=== PATIENT | male | born 1955 | race Caucasian/White ===

== ENCOUNTER 2018-12-15 10:07 | Inpatient (IN) | payer BC ==
[~2018-12-15] VITALS: Ht 182.9 cm; Wt 103.9 kg
[~2018-12-15 10:07] MED LIST: BACTRIM DS TAB1 EACH PO; FLEXERIL PO; MEDROLDOSEPACK PO; NORCO 5-325 TA1 EACH PO
[2018-12-15] MEDS ORDERED: LISINOPRIL40 MG PO (10:18)
[2018-12-15] MEDS ORDERED: AMLODIPINE BESY10 MG PO (10:19)
[2018-12-15] MEDS ORDERED: EDARBI80 MG PO (10:19)
[2018-12-15] MEDS ORDERED: CATAPRES-TTS 20.2 MG TOP (10:20)
[2018-12-15 11:02] LABS: ABSOLUTE BASOPHILS 0.1 thou/uL (0.0-0.2); ABSOLUTE EOSINOPHILS 0.1 thou/uL (0.0-0.7); ABSOLUTE LYMPHOCYTES 1.4 thou/uL (0.8-5.3); ABSOLUTE MONOCYTES 0.5 thou/uL (0.0-1.2); ABSOLUTE NEUTROPHILS 6.8 thou/uL (1.6-8.1); BASOPHILS 0.6 %; HEMATOCRIT 48.6 % (42.0-52.0); HEMOGLOBIN 17.1 gm/dL (14.0-18.0); LYMPHOCYTES 16.1 %; MCH 30.7 pg (26.0-34.0); MCHC 35.1 g/dL (28.0-37.0); MCV 87.6 fL (80.0-100.0); MONOCYTES 5.1 %; MPV 9.2 fl. (7.2-11.1); NUCLEATED RBCS 0 /100WBC; PLATELET COUNT* 193 thou/uL (150-400); POLYS 77.2 %; RBC 5.55 mil/uL (4.50-6.00); RDW-CV 13.1 % (10.5-14.5); WBC 8.9 thou/uL (4.0-11.0)
[2018-12-15 11:21] LABS: ALBUMIN 4.2 g/dL (3.4-5.0); ALKALINE PHOSPHATASE 89 U/L (46-116); ANION GAP 13 mmol/L (7-16); BUN 16 mg/dL (7-18); CALCIUM 9.4 mg/dL (8.5-10.1); CHLORIDE 102 mmol/L (98-107); CO2 26 mmol/L (21-32); CREATININE 1.1 mg/dL (0.6-1.3); GLUCOSE 145 mg/dL (70-99); LIPASE 150 U/L (73-393); NT-PRO BRAIN NAT PEPTIDE 126 pg/mL (<300); POTASSIUM 3.6 mmol/L (3.5-5.1); SGOT 17 U/L (15-37); SGPT 39 U/L (30-65); SODIUM 141 mmol/L (136-145); TOTAL BILIRUBIN 0.6 mg/dL (<0.1-1.0); TOTAL PROTEIN 8.9 g/dL (6.4-8.2); TROPONIN-I LEVEL <0.06 ng/mL (<0.06)
[2018-12-15 12:13] LABS: URINE BILIRUBIN NEGATIVE (Negative); URINE BLOOD NEGATIVE (Negative); URINE CLARITY CLEAR; URINE COLOR YELLOW; URINE GLUCOSE-RANDOM NEGATIVE (Negative); URINE KETONES TRACE (Negative); URINE LEUKOCYTES-REFLEX NEGATIVE (Negative); URINE NITRITE-REFLEX NEGATIVE (Negative); URINE PROTEIN 1+ (Negative); URINE UROBILINOGEN 0.2 E.U./dl (0.2-1.0)
[2018-12-15 13:08] VITALS: BP 168/95
[2018-12-15 13:24] LABS: CHOLESTEROL 198 mg/dL (<200); HDL CHOLESTEROL 51 mg/dL (>40); LDL CHOLESTEROL 131 mg/dL (<100); TC:HDL 3.9 Ratio (Not establshd); TRIGLYCERIDE 82 mg/dL (<150); VLDL 16 mg/dL (<40)
[2018-12-15 13:26] LABS: SERUM ASSESSMENT Clear
[2018-12-15 13:34] LABS: AMP/METHAMP Negative (Negative); BARBITURATES Negative (Negative); BENZODIAZEPINES Negative (Negative); COCAINE Negative (Negative); METHADONE Negative (Negative); OPIATES Negative (Negative); PCP Negative (Negative); THC Negative (Negative)
--- NOTE | 2018-12-15 13:50 | NUR ---
telephone report given er admit to 226 patient to via cart patient oriented to and call light at beside patient with c/o ya nurse notified and will treat rafal
[2018-12-15 14:00] VITALS: BP 169/92
--- NOTE | 2018-12-15 14:53 | EKG ---
[place] [address] ELECTROCARDIOGRAM REPORT Name: JUAN CARLOS BURKS Room: [address] ADM IN .R.#: [id number] Admission: 12/15/18 Attend Phys: Juan Carlos Irving MD Discharge: Date of : 55 Report #: [id number] THIS REPORT FOR: //name// [facility] ED Test Date: 2018-12-15 Test Time: 10:14:04 Pat Name: JUAN CARLOS BURKS Department: Room: 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1955 Requested By: Roberto Foster Order Number: [id number] MD: Karlos Pfeiffer Measurements Intervals [place] Rate: 74 P: 32 SD: 200 QRS: 12 QRSD: 102 T: 141 QT: 412 QTc: 457 Interpretive Statements Sinus rhythm Probable left atrial enlargement Abnormal T, consider ischemia, lateral leads No previous ECG available for comparison Electronically Signed On 12-15-2018 14:53:01 CDT by Karlos Pfeiffer [email or web address] <ELECTRONICALLY SIGNED> By: Karlos Pfeiffer MD, [facility] 12/15/18 1453 1014 [id number] Karlos Pfeiffer MD, FAC /EPI
[2018-12-15 16:18] VITALS: BP 172/101
[2018-12-15 19:20] VITALS: BP 169/92
[2018-12-16] VITALS: BP 146/87
[2018-12-16 04:00] VITALS: BP 156/79
[2018-12-16 05:03] LABS: ABSOLUTE LYMPHOCYTES 1.3 thou/uL (0.8-5.3); ABSOLUTE MONOCYTES 0.7 thou/uL (0.0-1.2); ABSOLUTE NEUTROPHILS 10.7 thou/uL (1.6-8.1); BASOPHILS 0.1 %; EOSINOPHILS 0.1 %; HEMATOCRIT 43.7 % (42.0-52.0); HEMOGLOBIN 15.3 gm/dL (14.0-18.0); LYMPHOCYTES 10.5 %; MCH 30.6 pg (26.0-34.0); MCV 87.4 fL (80.0-100.0); MONOCYTES 5.7 %; MPV 9.6 fl. (7.2-11.1); NUCLEATED RBCS 0 /100WBC; PLATELET COUNT* 228 thou/uL (150-400); POLYS 83.6 %; RDW-CV 13.2 % (10.5-14.5); WBC 12.8 thou/uL (4.0-11.0)
[2018-12-16 05:06] LABS: CREATININE 1.4 mg/dL (0.6-1.3); POTASSIUM 3.9 mmol/L (3.5-5.1)
--- NOTE | 2018-12-16 05:44 | NUR ---
ASSUMED CARE OF PT AT 1900. PT IS ALERT AND ORIENTED. BLOOD PRESSURE WAS STILL ELEVATED AND PT HAD A SEVERE HEADACHE AT 1900. PT WAS GIVEN MORE HYDRALAZINE FOR HTN AND HYDROCODONE FOR HIS HEADACHE. PT ALSO RECIEVED ZOFRAN FOR NAUSEA. PT IS UP AD JANESSA. VSS. PERRLA. PT IS IN SINUS RYTHM ON THE TELEMETRY. PT IS RESTING COMFORTABLY IN BED. RESPIRATIONS ARE EVEN AND NONLABORED. WILL CONTINUE TO MONITOR PT.
--- NOTE | 2018-12-16 07:20 | NUR ---
CHANGE OF SHIFT, BEDSIDE REPORT GIVEN PATIENT SEEN AT BEDSIDE, SITTING UP IN BED WATCHING TV ASSUMED PATIENT CARE
[2018-12-16 08:00] VITALS: BP 156/85
[2018-12-16] MEDS ORDERED: CARVEDILOL3.125 MG PO ×2 (11:58→13:13)
[2018-12-16 11:59] VITALS: BP 156/85
[2018-12-16 12:00] VITALS: BP 153/77
[2018-12-16] MEDS ORDERED: AMLODIPINE BESY10 MG PO (13:13)
[2018-12-16] MEDS ORDERED: ASPIR 8181 MG PO (13:13)
[2018-12-16] MEDS ORDERED: CATAPRES-TTS 20.2 MG TRANSDERM (13:13)
[2018-12-16] MEDS ORDERED: LISINOPRIL40 MG PO (13:13)
--- NOTE | 2018-12-16 13:22 | NUR ---
MET WITH PT AND TO DISCUSS HOME SITUATION/DC PLANNING. PT LIVES WITH . HE IS INDEPENDENT AND ACTIVE, USES NO EQUIPMENT. HE IS SELF EMPLOYED. PT AND STATED THEIR INSURANCE WILL TERM THE END OF THE MONTH AND HE LOST HIS PCP/DR GOLDEN. GAVE RESOURCE FOR [facility]. ENCOURAGED PT TO F/U SOON HE WILL ONLY HAVE SCRIPTS FOR A MONTH'S SUPPLY POST DC.
--- NOTE | 2018-12-16 14:49 | NUR ---
PATIENT DISCHARGED TO HOME IV AND HEART MONITOR REMOVED DISCHARGE INFORMATION GIVEN, ACKNOWLEDGED, AND SIGNED COPIES GIVEN PERSONAL BELONGINGS RETURNED PATIENT ASSISTED OUT VIA GOOD CONDITION TO WAITING CAR
--- NOTE | 2018-12-16 15:43 | 2DMMODE ---
[place] [address] 2 D/M-MODE ECHOCARDIOGRAM Name: JUAN CARLOS BURKS Room: [address] IN [facility]#: [id number] Admission: 12/15/18 Attend Phys: Juan Carlos Irving, Discharge: 12/16/18 Date of : 55 Date of Service: 12/16/18 1543 Report #: [id number] THIS REPORT FOR: //name// APPROVED REPORT Study performed: 12/16/2018 13:24:38 EXAM: Comprehensive 2D, Doppler, and color-flow Echocardiogram Patient Location: In-Patient Room #: [facility] Status: routine BSA: 2.28 HR: 65 bpm BP: 156/85 mmHg Rhythm: NSR Other Information Study Quality: Good Indications Hypertension/HDD 2D Dimensions IVSd: 16.87 (7-11mm) LVOT Diam: 21.95 (18-24mm) LVDd: 45.12 mm PWd: 11.34 (7-11mm) Ascending Ao: 38.93 (22-36mm) LVDs: 23.08 (25-40mm) Aortic Root: 37.15 mm Volumes Left Atrial Volume (Systole) LA ESV Index: 36.20 mL/m2 Aortic Valve AoV Peak Sebas.: 1.81 m/s AO Peak Gr.: 13.09 mmHg LVOT Max P.81 mmHg AO Mean Gr.: 7.62 mmHg LVOT Mean P.18 mmHg LVOT Max V: 1.79 m/s AO V2 VTI: 33.13 cm LVOT Mean V: 1.13 m/s NIC (VTI): 3.62 cm2 LVOT V1 VTI: 31.70 cm AI Ocean: 1.66 m/s2 AI PHT: 549.63 ms Mitral Valve E/A Ratio: 0.67 [place] [address] 2 D/M-MODE ECHOCARDIOGRAM Name: JUAN CARLOS BURKS Room: [address] IN .R.#: [id number] Admission: 12/15/18 Attend Phys: Juan Carlos Irving, Discharge: 12/16/18 Date of : 55 Date of Service: 12/16/18 1543 Report #: [id number] MV Decel. Time: 428.89 ms MV E Max Sebas.: 0.56 m/s MV PHT: 124.38 ms MVA (PHT): 1.77 cm2 TDI E/Lateral E': 7.00 E/Medial E': 9.33 Medial E' Sebas.: 0.06 m/s Lateral E' Sebas.: 0.08 m/s Pulmonary Valve PV Peak Sebas.: 1.00 m/s PV Peak Gr.: 4.02 mmHg Left Ventricle The left ventricle is normal size. There is normal LV segmental wall motion. Moderate concentric left ventricular hypertrophy. Left ventricular systolic function is normal. The left ventricular ejection fraction is within the normal range. LVEF is >70%. Grade I - abnormal relaxation pattern. Right Ventricle The right ventricle is normal size. The right ventricular systolic function is normal. Atria Left atrium is mildly dilated. The right atrium size is normal. Aortic Valve The aortic valve is normal in structure. Mild aortic regurgitation. There is no aortic valvular stenosis. Mitral Valve The mitral valve is normal in structure. Trace mitral regurgitation. No evidence of mitral valve stenosis. Tricuspid Valve The tricuspid valve is normal in structure. Unable to assess PA pressure. Trace tricuspid regurgitation. Pulmonic Valve The pulmonary valve is normal in structure. There is no pulmonic valvular regurgitation. Great Vessels The aortic root is normal in size[place] [address] 2 D/M-MODE ECHOCARDIOGRAM Name: JUAN CARLOS BURKS Room: [address]#: [id number] Admission: 12/15/18 Attend Phys: Juan Carlos Irving, Discharge: 12/16/18 Date of : 55 Date of Service: 12/16/18 1543 Report #: [id number] visualized. Pericardium There is no pericardial effusion. <Conclusion> Moderate concentric left ventricular hypertrophy. LVEF is >70%. Left atrium is mildly dilated. Mild aortic regurgitation. <ELECTRONICALLY SIGNED> By: Karlos Pfeiffer MD, FACC 12/16/18 1543 1543 1543 Karlos Pfeiffer MD, FACC /INF
== END 2018-12-16 14:49 | disposition home or self-care (01) | DRG 305 ==
LOC: M.ERS 10:07 → M.TBA-ER 11:37 → M.2W 11:37
PROVIDERS: Emergency Medicine; Registered Nurse; ADMIT Internal Medicine
DX: I10 Essential (primary) hypertension (principal); Z79.899 Other long term (current) drug therapy; Z87.891 Personal history of nicotine dependence; Z86.73 Personal history of transient ischemic attack (TIA), and cerebral infarction without residual deficits

== ENCOUNTER 2020-09-18 18:44 | Emergency (ER) | payer MEDICARE, OTHER ==
[~2020-09-18] VITALS: Ht 182.9 cm; Wt 100.2 kg
[~2020-09-18 18:44] MED LIST changes: +AMLODIPINE BESY10 MG PO; +ASPIR 8181 MG PO; +CARVEDILOL3.125 MG PO; +CATAPRES-TTS 20.2 MG TOP; +CATAPRES-TTS 20.2 MG TRANSDERM; +EDARBI80 MG PO; +LISINOPRIL40 MG PO
[2020-09-18] MEDS ORDERED: PREDNISONE 5 MG5 M1 PO (18:54)
[2020-09-18] MEDS ORDERED: TENORMIN25 MG PO (18:55)
[2020-09-18 19:49] LABS: ABSOLUTE LYMPHOCYTES 0.8 thou/uL (0.8-5.3); ABSOLUTE MONOCYTES 0.4 thou/uL (0.0-1.2); BASOPHILS 0.1 %; HEMOGLOBIN 13.4 gm/dL (14.0-18.0); LYMPHOCYTES 15.6 %; MCHC 34.3 g/dL (28.0-37.0); MCV 87.5 fL (80.0-100.0); MONOCYTES 7.6 %; MPV 8.9 fl. (7.2-11.1); NUCLEATED RBCS 0 /100WBC; PLATELET COUNT* 166 thou/uL (150-400); POLYS 76.7 %; RBC 4.46 mil/uL (4.50-6.00); RDW-CV 12.9 % (10.5-14.5); WBC 5.2 thou/uL (4.0-11.0)
[2020-09-18 19:59] LABS: CALCIUM 9.1 mg/dL (8.5-10.1); CREATININE 1.2 mg/dL (0.6-1.3); POTASSIUM 4.1 mmol/L (3.5-5.1)
[2020-09-18 20:05] LABS: ALBUMIN 3.3 g/dL (3.4-5.0); TOTAL BILIRUBIN 0.6 mg/dL (<0.1-1.0); TOTAL PROTEIN 7.8 g/dL (6.4-8.2)
[2020-09-18] MEDS ORDERED: ZPAK PO (21:30)
[2020-09-18] MEDS ORDERED: TESSALON PERLE100 MG PO (21:30)
[2020-09-18] MEDS ORDERED: VENTOLIN HFA 1818 GM INH (21:30)
[2020-09-18 22:00] VITALS: BP 164/91
--- NOTE | 2020-09-19 16:11 | EKG ---
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1955 Requested By: Rachel Clifford Order Number: [id number] MD: Ashwin Ott Measurements Intervals [place] Rate: 71 P: 47 [place]: 193 QRS: 19 QRSD: 114 T: 122 QT: 409 QTc: 445 Interpretive Statements Sinus rhythm Borderline intraventricular conduction delay Abnormal T, consider ischemia, lateral leads Compared to ECG 12/15/2018 10:14:04 No significant changes Electronically Signed On 09-19-2020 16:11:12 [employer]WING AND [employer]SEMBLY SUPERVISOR by Ashwin Ott [email or web address] <ELECTRONICALLY SIGNED> By: Ashwin Ott MD, FAC 09/19/20 1611 45 45 Ashwin Ott MD, [facility] /EPI
== END 2020-09-18 22:03 | disposition home or self-care (01) ==
LOC: M.ERS 18:44
PROVIDERS: Nurse Practitioner Family
DX: U07.1 COVID-19 (principal); I10 Essential (primary) hypertension

== ENCOUNTER 2021-03-11 09:32 | Inpatient (IN) | payer MEDICARE, OTHER ==
[~2021-03-11] VITALS: Ht 182.9 cm; Wt 103.4 kg
--- NOTE | ~2021-03-11 | CON ---
[address] [address] CONSULTATION Name: KIMMIE,JUAN CARLOS Perry Room: [address] IN M.R.#: [id number] Admission: 03/11/21 Attend Phys: Juan Carlos Irving MD Discharge: Date of : 55 Report #: [id number] THIS REPORT FOR: cc: Param Urbina,Param Baron,Peewee Ingram MD ~ DATE OF CONSULTATION: 03/11/2021 HISTORY OF PRESENT ILLNESS: This is a 66-year-old male patient who was evaluated by me for two medical problems, which appeared to be separate. He had weakness on the right side of the face. 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 He also has some ear symptoms and there was some question of swelling there. Symptoms started when the patient woke up this morning. The other problem is his gait was unsteady when he tried to walk this morning and he was having a very high blood pressure. He had some right ear pain which predated this patient's incoordination. He says the symptoms started about 2 weeks ago. REVIEW OF SYSTEMS: Positive for hypertension. He does have a prior history of COVID. He has a liver laceration and trouble with the spine in the past, but except for his hypertension, he looks pretty healthy. He is not complaining of any eye symptoms. He is complaining of ear pain. He does not complain of any chest pain, respiratory difficulty, GI, , musculoskeletal, constitutional, dermatological, hematological, psychiatric, throat, allergic symptom associated with present symptomatology. PAST MEDICAL HISTORY: Positive for spine problem. FAMILY HISTORY: Unremarkable. SOCIAL HISTORY: He says he does not drink or smoke. PHYSICAL EXAMINATION: NEUROLOGIC: Indicates he is alert and responsive. He believes his memory, fund of knowledge and speech is at his baseline. Cranial nerve examination does indicate a lower motor neuron type of right facial palsy. I do not see any pronounced blisters at the moment and he does not have any marked pain on the face, but does have pain in the ear. His strength, sensation, reflexes and tone looks unremarkable. He did [id number] and [id number]-[id number] reasonably well for me. I even made him walk. He may be slight unsteady in tandem walking, but that was not very prominent. His position sense is normal. His reflexes are symmetrical. He is a very well-developed individual. His hearing and vision looks adequate. He has no edema. There [place] [address] CONSULTATION Name: KIMMIE,JUAN CARLOS Perry Room: [address] IN [facility].#: [id number] Admission: 03/11/21 Attend Phys: Juan Carlos Irving MD Discharge: Date of : 55 Report #: [id number] insufficiency. VITAL SIGNS: Blood pressure is 193/100, respirations 17, pulse is 71, temperature is 97.5. LABORATORY DATA: White count is normal at 6.5. GFR is normal. He had a CT angio of the head conducted in the Emergency Room and that was unremarkable. IMPRESSION: This patient appeared to have 2 problems which appeared to be separate. 1. 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 He needs a full ENT evaluation, but unfortunately no ENT physician comes here. 2. His ataxia could not be explained by that. It is possible he had a stroke, but more likely it would appear that his ataxia is because of hypertensive encephalopathy. He does appear to have pretty persistently high blood pressure and may have hypertensive emergency. RECOMMENDATIONS: 1. His blood pressure can be lowered because his vasculature is intact. 2. I will get an MRI of the brain to make sure there is no stroke. 3. He needs an ENT evaluation. 4. He got some steroids in the Emergency Room and I will suggest continuing that with the Medrol Kevin. We can start that tomorrow. 5. I will put him on acyclovir. I gave him a Paredes's palsy dose for the time being, but if any herpes zoster is found, then the dose has to be changed to herpes zoster dose, which is much higher. All of it was discussed with the patient and all of it was discussed with him in detail and I discussed his options and pros and cons of this option and he wants to follow this plan and we will do that. Thank you very much for this referral. By: [id number] Jacques MD /sammy
[~2021-03-11 09:32] MED LIST changes: +PREDNISONE 5 MG5 M1 PO; +TENORMIN25 MG PO; +TESSALON PERLE100 MG PO; +VENTOLIN HFA 1818 GM INH; +ZPAK PO
[2021-03-11 09:44] VITALS: BP 205/109
[2021-03-11 10:05] LABS: ABSOLUTE BASOPHILS 0.1 thou/uL (0.0-0.2); ABSOLUTE EOSINOPHILS 0.2 thou/uL (0.0-0.7); ABSOLUTE LYMPHOCYTES 1.6 thou/uL (0.8-5.3); ABSOLUTE MONOCYTES 0.5 thou/uL (0.0-1.2); ABSOLUTE NEUTROPHILS 4.1 thou/uL (1.6-8.1); BASOPHILS 0.9 %; EOSINOPHILS 2.9 %; HEMATOCRIT 42.3 % (42.0-52.0); HEMOGLOBIN 14.9 gm/dL (14.0-18.0); MCHC 35.2 g/dL (28.0-37.0); MCV 87.9 fL (80.0-100.0); MONOCYTES 8.4 %; NUCLEATED RBCS 0 /100WBC; PLATELET COUNT* 175 thou/uL (150-400); POLYS 62.8 %; RBC 4.81 mil/uL (4.50-6.00); RDW-CV 12.9 % (10.5-14.5); WBC 6.5 thou/uL (4.0-11.0)
[2021-03-11 10:16] LABS: CALCIUM 8.6 mg/dL (8.5-10.1); CREATININE 1.1 mg/dL (0.6-1.3); POTASSIUM 4.2 mmol/L (3.5-5.1)
[2021-03-11 10:20] LABS: ALBUMIN 3.7 g/dL (3.4-5.0); TOTAL BILIRUBIN 0.4 mg/dL (<0.1-1.0)
[2021-03-11 13:03] VITALS: BP 196/97
[2021-03-11 13:35] VITALS: BP 193/100
[2021-03-11 17:27] VITALS: BP 193/106
[2021-03-11 20:45] VITALS: BP 186/107
[2021-03-11 23:53] VITALS: BP 148/80
[2021-03-12 02:05] LABS: GLYCOHEMOGLOBIN (HGB A1C) 6.9 % (4.8-5.6)
[2021-03-12 03:51] VITALS: BP 155/87
[2021-03-12 08:05] LABS: HEMATOCRIT 46.7 % (42.0-52.0); HEMOGLOBIN 15.5 gm/dL (14.0-18.0); MCH 30.5 pg (26.0-34.0); MCHC 33.2 g/dL (28.0-37.0); MPV 9.6 fl. (7.2-11.1); NUCLEATED RBCS 0 /100WBC; PLATELET COUNT* 181 thou/uL (150-400); RBC 5.08 mil/uL (4.50-6.00); RDW-CV 13.5 % (10.5-14.5); WBC 18.4 thou/uL (4.0-11.0)
[2021-03-12 08:30] LABS: ANION GAP 11 mmol/L (7-16); BUN 23 mg/dL (7-18); CALCIUM 9.5 mg/dL (8.5-10.1); CHLORIDE 103 mmol/L (98-107); CHOLESTEROL 293 mg/dL (<200); CO2 27 mmol/L (21-32); CREATININE 1.3 mg/dL (0.6-1.3); GLUCOSE 246 mg/dL (70-99); HDL CHOLESTEROL 53 mg/dL (>40); LDL CHOLESTEROL 216 mg/dL (<100); POTASSIUM 4.6 mmol/L (3.5-5.1); SERUM ASSESSMENT Clear; SODIUM 141 mmol/L (136-145); TC:HDL 5.5 Ratio (Not establshd); TRIGLYCERIDE 123 mg/dL (<150); VLDL 25 mg/dL (<40)
[2021-03-12 09:01] VITALS: BP 183/101
[2021-03-12 09:11] LABS: ABSOLUTE LYMPHOCYTES 1.5 thou/uL (0.8-5.3); ABSOLUTE MONOCYTES 0.2 thou/uL (0.0-1.2); ABSOLUTE NEUTROPHILS 16.7 thou/uL (1.6-8.1)
[2021-03-12 09:12] LABS: PLATELET ESTIMATE ADEQUATE
--- NOTE | 2021-03-12 09:58 | EKG ---
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1955 Requested By: Edwardo Jennings Order Number: [id number] MD: Karlos Pfeiffer Measurements Intervals [place] Rate: 71 P: 33 DE: 213 QRS: 15 QRSD: 106 T: 143 QT: 416 QTc: 453 Interpretive Statements Sinus rhythm Borderline prolonged DE interval Abnormal T, consider ischemia, lateral leads Baseline wander in lead(s) II Compared to ECG 09/18/2020 19:46:02 No significant changes Electronically Signed On 03-12-2021 9:58:38 CDT by Karlos Pfeiffer [email or web address] <ELECTRONICALLY SIGNED> By: Karlos Pfeiffer MD, FACC 03/12/21 0958 Karlos Pfeiffer MD, FAC /EPI
[2021-03-12 12:15] VITALS: BP 183/96
[2021-03-12 12:34] LABS: AMP/METHAMP Negative (Negative); BARBITURATES Negative (Negative); BENZODIAZEPINES Negative (Negative); COCAINE Negative (Negative); METHADONE Negative (Negative); OPIATES Negative (Negative); PCP Negative (Negative); THC Negative (Negative)
--- NOTE | 2021-03-12 14:21 | 2DMMODE ---
[place] [address] 2 D/M-MODE ECHOCARDIOGRAM Name: JUAN CARLOS BURKS Room: [address] IN [place].#: [id number] Admission: 03/11/21 Attend Phys: Juan Carlos Irving, Discharge: Date of : 55 Date of Service: 03/12/21 1420 Report #: [id number] THIS REPORT FOR: cc: Param Urbina,Param Doshi,Karlos Cortés MD [facility] ~ APPROVED REPORT Study performed: 03/12/2021 10:33:13 EXAM: Comprehensive 2D, Doppler, and color-flow Echocardiogram Patient Location: In-Patient Room #: [facility] Status: routine BSA: 2.26 HR: 88 bpm BP: 155/87 mmHg Rhythm: NSR Other Information Study Quality: Good Indications CVA/TIA Echo Enhancing Agent Indication: Rule out Shunt Agent(s) / Amount(s) Used: Agitated Saline 10 cc 2D Dimensions IVSd: 17.34 (7-11mm) LVOT Diam: 21.17 (18-24mm) LVDd: 41.60 mm PWd: 16.08 (7-11mm) Ascending Ao: 38.42 (22-36mm) LVDs: 15.83 (25-40mm) Aortic Root: 37.17 mm Volumes Left Atrial Volume (Systole) LA ESV Index: 22.80 mL/m2 Aortic Valve AoV Peak Sebas.: 1.69 m/s AO Peak Gr.: 11.46 mmHg LVOT Max P.16 mmHg AO Mean Gr.: 7.55 mmHg LVOT Mean P.37 [place] [address] 2 D/M-MODE ECHOCARDIOGRAM Name: JUAN CARLOS BURKS Room: [address] IN [facility]#: [id number] Admission: 03/11/21 Attend Phys: Juan Carlos Irving, Discharge: Date of : 55 Date of Service: 03/12/21 1420 Report #: [id number] LVOT Max V: 1.51 m/s AO V2 VTI: 32.85 cm LVOT Mean V: 0.95 m/s NIC (VTI): 2.75 cm2 LVOT V1 VTI: 25.64 cm Mitral Valve E/A Ratio: 0.59 MV Decel. Time: 133.29 ms MV E Max Sebas.: 0.58 m/s MV PHT: 38.66 ms MVA (PHT): 5.69 cm2 TDI E/Lateral E': 6.44 Lateral E' Sebas.: 0.09 m/s Pulmonary Valve PV Peak Sebas.: 1.24 m/s PV Peak Gr.: 6.16 mmHg Left Ventricle The left ventricle is normal size. There is normal LV segmental wall motion. Moderate concentric left ventricular hypertrophy. Left ventricular systolic function is normal. The left ventricular ejection fraction is within the normal range. LVEF is 65-70%. Grade I - abnormal relaxation pattern. Right Ventricle The right ventricle is normal size. The right ventricular systolic function is normal. Atria The left atrium size is normal. The interatrial septum is intact with no evidence for an atrial septal defect. The right atrium size is normal. Aortic Valve Mild aortic valve sclerosis. Trace aortic regurgitation. There is no aortic valvular stenosis. Mitral Valve The mitral valve is normal in structure. Trace mitral regurgitation. No evidence of mitral valve stenosis. Tricuspid Valve The tricuspid valve is normal in structure. Unable to assess PA pressure. Trace [place]icus[place] [address] 2 D/M-MODE ECHOCARDIOGRAM Name: JUAN CARLOS BURKS Room: [address]#: [id number] Admission: 03/11/21 Attend Phys: Juan Carlos Irving, Discharge: Date of : 55 Date of Service: 03/12/21 1420 Report #: [id number] Pulmonic Valve The pulmonary valve is normal in structure. There is no pulmonic valvular regurgitation. Great Vessels Aortic root is mildly dilated. IVC is normal in size and collapses >50% with inspiration. Pericardium There is no pericardial effusion. <Conclusion> Moderate concentric left ventricular hypertrophy. LVEF is 65-70%. The interatrial septum is intact with no evidence for an atrial septal defect. Aortic root is mildly dilated. <ELECTRONICALLY SIGNED> By: Karlos Pfeiffer MD, [facility] 03/12/21 1420 1420 1420 Karlos Pfeiffer MD, FACC /INF
[2021-03-12 16:33] VITALS: BP 162/78
[2021-03-12 20:15] VITALS: BP 177/87
[2021-03-13 08:00] VITALS: BP 117/78; BP 190/90
[2021-03-13] MEDS ORDERED: COZAAR 50 MG TA50 M1 PO (09:56)
[2021-03-13] MEDS ORDERED: ADULT LOW DOSE81 MG PO (09:57)
[2021-03-13] MEDS ORDERED: MEDROLDOSEPACK PO (10:06)
[2021-03-13] MEDS ORDERED: ACYCLOVIR 400400 MG PO ×2 (10:24→10:28)
[2021-03-13 11:48] VITALS: BP 176/98
[2021-03-13 12:11] VITALS: BP 176/98
== END 2021-03-13 13:15 | disposition home or self-care (01) | DRG 74 ==
LOC: M.ERS 09:32 → M.2W 11:33 → M.TBA-ER 11:33 → M.2W 13:25
PROVIDERS: Family Medicine; ADMIT Internal Medicine; ATTEND Internal Medicine
DX: G51.0 Bell's palsy (principal); I16.1 Hypertensive emergency; I67.4 Hypertensive encephalopathy; R27.0 Ataxia, unspecified; I10 Essential (primary) hypertension; L25.9 Unspecified contact dermatitis, unspecified cause; E11.9 Type 2 diabetes mellitus without complications; Z20.822 Contact with and (suspected) exposure to COVID-19; Z86.16 Personal history of COVID-19; Z79.899 Other long term (current) drug therapy